=== PATIENT | female | born 1975 | race Asian ===

== ENCOUNTER 2017-09-22 09:23 | Day surgery (SDC) | payer BC ==
[2017-09-21 12:52] VITALS: BMI 22.8
[2017-09-22] MEDS ORDERED: PROPOFOL 20 ML ONE (09:32)
[2017-09-22] MEDS ORDERED: LIDOCAINE HCL/PF 2% SDV 5ML VIAL ONE (09:33)
[2017-09-22 10:46] VITALS: TEMP 97.6
[2017-09-22 12:09] VITALS: BP 104/64; PULSE 61
--- NOTE | 2017-09-23 17:17 | PATH ---
Surgical Pathology Report Patient Name: SONIA WARNER [facility] Rec. #: [id number] /Age/Gender: 1975 (Age: 42) / F Account: [id number] Location: U-ENDOSCOPY Taken: 09/22/2017 Received: 09/22/2017 Reported: 09/23/2017 Physicians: Enrique More M.D. Specimen(s) Received BX ANTRUM AND BODY Clinical History Abdominal pain Postoperative diagnosis: Gastritis Final Diagnosis ANTRUM AND BODY, BIOPSY: GASTRIC MUCOSA WITH NO DIAGNOSTIC ABNORMALITIES. IMMUNOSTAIN IS NEGATIVE FOR H. PYLORI ORGANISMS. Electronically Signed Fani Neville M.D. Gross Description Received in formalin, labeled "biopsy body and antrum" are 3 moraes, irregular portions of soft tissue ranging from 0.3-0.8 cm. in greatest dimension. The specimens are submitted in toto in one cassette. /09/22/2017 saudi/09/22/2017
== END 2017-09-22 11:40 | disposition home or self-care (01) ==
LOC: JASU-ENDO 09:23
PROVIDERS: ATTEND Internal Medicine Gastroenterology
PROC: 0DB68ZX Excision of Stomach, Via Natural or Artificial Opening Endoscopic, Diagnostic (ICD-10-PCS; principal; 2017-09-22 10:15)
DX: K29.70 Gastritis, unspecified, without bleeding (principal); K31.7 Polyp of stomach and duodenum
CPT/HCPCS: 84703; 88305-TC; 88342-TC

== ENCOUNTER 2018-04-01 05:00 | Day surgery (SDC) | payer BC ==
[2018-03-29 08:50] VITALS: BMI 22.3
--- NOTE | 2018-04-01 06:16 | HP ---
[facility] - Chief Complaint Chief Complaint: Heavy vaginal bleeding with simple endometrial hyperplasia History of Present Illness: This patient has a history of heavy uterine bleeding and a recent endometrial biopsy revealed simple endometrial hyperplasia. History Source: Patient Limitations to Obtaining History: No Limitations - Past Medical History Allergies/Adverse Reactions: Allergies Allergy/AdvReac Type Severity Reaction Status Date / Time No Known Drug Allergies Allergy Verified 06/11/15 12:06 [employer]: No: Alzheimer's, CVA, Dementia, Migraine, Multiple Sclerosis, Peripheral Neuropathy, Parkinson's, Seizure, Syncope, TIA, Vertigo, Other Cardiovascular: No: AFIB, Aneurysm, Aortic Insufficiency, Aortic Stenosis, CAD, CHF, Deep Vein Thrombosis, HTN, Hyperlipdemia, IA, Mitral Insufficiency, Mitral Stenosis, Murmur, Pulmonary Hypertension, Other Pulmonary: No: Asthma, Bronchitis, Cancer, COPD, O2 Dependent, Pneumonia, Previously Intubated, Pulmonary Embolus, Pulmonary Fibrosis, Sleep Apnea, Other Gastrointestinal: No: Ascites, Cancer, Constipation, Crohn's Disease, Diverticulitis, Diverticulosis, Esophageal Varices, Gastritis, GERD, GI Bleed, Hemorrhoids, Hiatal Hernia, Inflamatory Bowel Disease, Irritable Bowel Disease, Pancreatitis, Peptic Ulcer Disease, Ulcerative Colitis, Other Hepatobiliary: No: Cirrhosis, Cholelithiasis, Cholecystitis, Choledocholithiasis , Hepatitis A, Hepatitis B, Hepatitis C, Other Renal/: No: Renal Failure, Renal Inusuff, BPH, Cancer, Hematuria, Hemodialysis , Neurogenic Bladder, Renal Calculi, UTI, Other Reproductive: No: Ectopic , Endometriosis, Fibroids, PID, Polycystic Ovary Syndrome, Postmenopausal, Other ...LMP: 05/19/15 ...: No ...: 4 ...Para: 3 Heme/Onc: No: Anemia, B12 Deficiency, Bleeding Disorder, Cancer, Current Chemotherapy, Current Radiation Therapy, Hemochromatosis, Hypercoaguable State, Myeloproliferative Synd, Sickle Cell Disease, Sickle Cell Trait, Thrombocytopenia, Other Infectious Disease: No: AIDS, C-Diff, Herpes Zoster, HIV, MRSA, STD's, Tuberculosis, VREF, Other Musculoskeletal: No: Bursitis, Chronic low back pain, Hemiparesis, Hemiplegia, Osteoarthritis, Paraplegia, Other Rheumatology: No: Fibromyalgia, Gout, Lupus, Rheumatoid Arthritis, Sarcoidosis, Vasculitis, Other ENT: No: Allergic Rhinitis, Sinusitis, Other Endocrine: No: Slope's Disease, [place]'s Disease, Diabetes Insipidus, Diabetes Mellitus, Hyperparathyroidism, Hyperthyroidism, Hypothyroidism, Osteopenia, SIADH, Other Dermatology: No: Basal Cell, Cellulitis, Eczema, Melanoma, Psoriasis, Squamous Cell, Other - Current Medications Current Medications: Home Medications Medication Instructions Recorded NK [No Known Home Medication] 03/29/18 Satellite Physical Exam - Physical Examination General Appearance: Well Nourished, Well Developed, Alert & Oriented x3 ENT: Clear, No Discharge, No masses Lung: Clear to auscultation Heart: Regular rate & rhythm, Normal S1, Normal S2 Breasts: Soft, Non-Tender, No masses bilaterally Abdomen: Soft, No tenderness, No CVA Extremities: No edema, No tenderness/swelling Pelvic Exam: Within normal limits External Genitalia, Within normal limits Vagina, Within normal limits Cervix, Within normal limits Uterus, Within normal limits [facility]: Intact, Alert, Oriented Satellite Impression/Plan - Impression/Plan Impression: Menorrhagia with simple endometrial hyperplasia Operative Procedure: D/C with hysteroscopy Date to be Performed: 04/01/18
[2018-04-01] MEDS ORDERED: MIDAZOLAM HCL 2 MG/2 ML SINGLE DOSE VIAL ONE (07:33)
[2018-04-01] MEDS ORDERED: PROPOFOL 20 ML ONE (07:35)
[2018-04-01] MEDS ORDERED: SUCCINYLCHOLINE CHLORIDE 200 MG/10 ML VIAL ONE (07:35)
[2018-04-01] MEDS ORDERED: ONDANSETRON 4 MG/2 ML VIAL IVPUSH PRN (08:07)
[2018-04-01] MEDS ORDERED: PROMETHAZINE HCL 25 MG/1 ML VIAL IVPB PRN (08:07)
[2018-04-01] MEDS ORDERED: oxyCODONE HCL 5 MG TABLET PO PRN (08:07)
[2018-04-01] MEDS ORDERED: LACTATED RINGERS SOLUTION 1,000 ML IV SCH (08:15)
--- NOTE | 2018-04-01 08:39 | OP ---
DATE OF OPERATION: 04/01/2018 PREOPERATIVE DIAGNOSIS: Menorrhagia, simple endometrial hyperplasia. POSTOPERATIVE DIAGNOSIS: Menorrhagia, simple endometrial hyperplasia, and anemia. PROCEDURES PERFORMED: Hysteroscopy, dilatation and curettage, and polypectomy. SURGEON: Hali Morelos MD ESTIMATED BLOOD LOSS: Approximately 5 mL. DESCRIPTION OF PROCEDURE: The patient was brought to the operating room, placed in the supine position, given anesthesia by the anesthesiologist. She was placed in the lithotomy position, prepped and draped in the usual manner. The patient was examined. The uterus was noted to be retroverted. Adnexa negative. The size of the uterus felt normal. After the vagina was prepped and draped with Betadine, the anterior lip of the cervix was grasped with a tenaculum. The uterus was sounded to 8 cm. Hysteroscopy was then performed, and the patient was noted to have a polyp-appearing lesion in the fundus of the uterus. It was removed using polyp forceps. This was followed by an endometrial curettage using a medium sized curette. Hemostasis was good. The estimated blood loss was approximately 5 mL. An endocervical curettage was also carried out. Therefore, a polypectomy, endometrial curettage and endocervical curettage were carried out. The patient did well and was transferred to the recovery room. Please note that prior to the procedure, the patient was advised that she is anemic, and she is to take iron twice a day. HALI MORELOS M.D. [id number]
[2018-04-01 11:15] VITALS: BP 90/60; PULSE 55; TEMP 97.8
--- NOTE | 2018-04-02 16:06 | PATH ---
Surgical Pathology Report Patient Name: SONIA WARNER [facility]. Rec. #: [id number] /Age/Gender: 1975 (Age: 43) / F Account: [id number] Location: [facility] SURGICAL Taken: 04/01/2018 Received: 04/01/2018 Reported: 04/02/2018 Physicians: Stanislav Morelos M.D. Specimen(s) Received A: POLYP B: ENDOMETRIAL CURETTINGS C: ENDOCERVICAL CURETTINGS Clinical History Menorrhagia, benign endometrial hyperplasia Final Diagnosis A. POLYP, EXCISION: ENDOMETRIAL POLYP WITH INFARCTION. B. ENDOMETRIAL CURETTINGS: FRAGMENTS OF PROLIFERATIVE ENDOMETRIUM. SEPARATE FRAGMENT OF INFARCTED TISSUE. SEPARATE UNREMARKABLE ENDOCERVICAL TISSUE FRAGMENTS. C. ENDOCERVICAL CURETTINGS: FRAGMENTS OF POLYPOID ENDOCERVICAL TISSUE, SEPARATE ENDOCERVICAL GLANDS, AND SCANTY LOWER UTERINE SEGMENT TISSUE WITH NO DIAGNOSTIC ABNORMALITIES. Electronically Signed Fani Neville M.D. Gross Description A. Received in formalin labeled "polyp," is a 2.2 x 1.4 x 0.3 cm moraes-red portion of soft tissue, consistent with a polyp. The specimen is submitted in toto in one cassette. B. Received in formalin labeled "endometrial curettings," is a 3.0 x 2.6 x 0.4 cm aggregate of moraes red soft tissue fragments. The formalin is filtered and the specimen is entirely submitted in 2 cassettes. C. Received in formalin labeled "endocervical curettings," is a 1.0 x 0.6 x 0.2 cm aggregate of moraes-brown soft tissue fragments. The formalin is filtered and the specimen is entirely submitted in one cassette. DL/04/01/2018 saudi04/01/2018
== END 2018-04-01 11:00 | disposition home or self-care (01) ==
LOC: JASU-SURG 05:00
PROVIDERS: ATTEND Obstetrics & Gynecology
PROC: 0UJD8ZZ Inspection of Uterus and Cervix, Via Natural or Artificial Opening Endoscopic (ICD-10-PCS; 2018-04-01)
PROC: 0UB97ZX Excision of Uterus, Via Natural or Artificial Opening, Diagnostic (ICD-10-PCS; principal; 2018-04-01 07:30)
PROC: 0UDB7ZX Extraction of Endometrium, Via Natural or Artificial Opening, Diagnostic (ICD-10-PCS; 2018-04-01 07:30)
DX: N92.0 Excessive and frequent menstruation with regular cycle (principal); N84.0 Polyp of corpus uteri; N85.00 Endometrial hyperplasia, unspecified; D64.9 Anemia, unspecified
CPT/HCPCS: 84703; 88305-TC; 94760